=== PATIENT | female | born 1950 | race Hispanic/Latino ===

== ENCOUNTER → 2023-04-17 | Outpatient (CLI) | payer OTHER | END | disposition home or self-care (01) | LOC: RAH 11:21 | PROVIDERS: ATTEND Internal Medicine | DX: S09.90XD Unspecified injury of head, subsequent encounter (principal); M17.12 Unilateral primary osteoarthritis, left knee; X58.XXXD Exposure to other specified factors, subsequent encounter | CPT/HCPCS: 70250; 73562 ==

== ENCOUNTER → 2025-08-26 | Outpatient (CLI) | payer OTHER, SELFPAY ==
[~2025-08-26] MED LIST: ACET-2247 PO; AEC81 PO; CALC1TAB2 PO; EMPA25TA PO; GABA300C PO; INSU3INS3 SQ; IOHEXOL 350 MG/ML 100ML INFUS..BTL IV ONE; IOHEXOL-350 50ML VIAL IV ONE; LOSA25TA41 PO; METO-408 PO; PANT40TA54 PO; ROSU20TA98 PO; SENN8.6T32 PO; TRAM50TA4 PO
--- NOTE | 2025-08-27 08:37 | HMCIMG ---
EXAM: CTA Abdomen and Pelvis With Runoff to the Lower Extremities with Intravenous Contrast. CLINICAL HISTORY: Patient presents with known peripheral vascular disease undergoing arterial evaluation of the abdomen, pelvis, and lower extremities. TECHNIQUE: Axial CTA images of the abdomen, pelvis, and bilateral lower extremities obtained in the arterial phase following intravenous contrast administration, with coronal and sagittal reformatted images. Three-dimensional reformatted images generated and reviewed on an independent workstation. CONTRAST: Intravenous contrast injected without incident. COMPARISON: None provided. FINDINGS: VASCULATURE: Aorta: Normal caliber abdominal aorta without aneurysm or dissection. Mild atheromatous wall calcifications. Celiac Trunk: Patent without significant stenosis. Superior Mesenteric Artery: Patent without significant stenosis. Inferior Mesenteric Artery: Patent. Renal Arteries: Moderate ostioproximal calcific atherosclerotic disease bilaterally without flow-limiting stenosis. Right Iliac Arteries: Mild atheromatous wall calcifications without significant stenosis. Right Femoral Arteries: Mild intimal calcific disease without significant stenosis. Right Popliteal Artery: Mild intimal calcific disease without significant stenosis. Right Calf Arteries: Mild intimal calcific disease involving anterior and posterior tibial arteries with preserved distal runoff. Left Iliac Arteries: Mild atheromatous wall calcifications without significant stenosis. Left Femoral Arteries: Mild intimal calcific disease without significant stenosis. Left Popliteal Artery: Mild intimal calcific disease without significant stenosis. Left Calf Arteries: Mild intimal calcific disease involving anterior and posterior tibial arteries with preserved distal runoff. Lower Thorax: No basilar airspace consolidation. ABDOMEN: Liver: Nodular hepatic contour suggestive of cirrhosis. Recanalized paraumbilical vein. Gallbladder and Bile Ducts: Distended gallbladder with gallstones. No biliary ductal dilatation. Pancreas: Unremarkable. Spleen: Mild splenomegaly measuring up to 12.5 cm. Adrenals: Unremarkable. Kidneys and Ureters: Symmetric enhancement without hydronephrosis. Stomach and Bowel: Uncomplicated colonic diverticula. Mild fecal loading of the colon. Small hiatus hernia. Appendix: Within normal limits. PELVIS: Bladder: Unremarkable. Reproductive: Post hysterectomy status. Peritoneum: No free fluid or free air. Lymph Nodes: No lymphadenopathy. Bones: Multilevel moderate spondylosis. LOWER EXTREMITIES: Soft Tissues: Moderate subcutaneous edema in the left leg. Lymph Nodes: No lymphadenopathy. Bones: Orthopedic implant in situ in the left distal femur. No acute osseous abnormality. IMPRESSION: No hemodynamically significant arterial stenosis or occlusion in the abdominal, pelvic, or bilateral lower extremity arterial systems with preserved distal runoff. Mild to moderate diffuse atherosclerotic disease involving the aorta, renal arteries, iliac, femoral, popliteal, and tibial arteries. Distended gallbladder with gallstones. Chronic liver disease with portal hypertension, including nodular cirrhotic contour, recanalized paraumbilical vein, splenomegaly, and mild portal and splenic venous dilatation. Moderate subcutaneous edema of the left lower extremity. Small umbilical hernia containing fat and varices. /Tracy
== END ==
LOC: RAH 09:30
PROVIDERS: ATTEND Internal Medicine
DX: I73.9 Peripheral vascular disease, unspecified (principal); I25.10 Atherosclerotic heart disease of native coronary artery without angina pectoris; K76.9 Liver disease, unspecified; Z90.710 Acquired absence of both cervix and uterus; K57.30 Diverticulosis of large intestine without perforation or abscess without bleeding; K44.9 Diaphragmatic hernia without obstruction or gangrene; K76.6 Portal hypertension; K80.20 Calculus of gallbladder without cholecystitis without obstruction; K74.60 Unspecified cirrhosis of liver; I70.1 Atherosclerosis of renal artery; I70.0 Atherosclerosis of aorta
CPT/HCPCS: 75635; Q9967 ×2